=== PATIENT | female | born 1970 | race Two or more races ===

== ENCOUNTER → 2016-11-11 07:41 | Outpatient (CLI) | payer MEDICARE, BC | END | disposition home or self-care (01) | LOC: D.RAD 07:41 | DX: R10.13 Epigastric pain (principal); Z98.890 Other specified postprocedural states ==

== ENCOUNTER → 2017-01-13 09:00 | Outpatient (CLI) | payer MEDICARE, BC | END | disposition home or self-care (01) | LOC: D.LAB 09:00 | DX: K50.90 Crohn's disease, unspecified, without complications (principal) ==